=== PATIENT | female | born 1965 | race African-American/Black ===

== ENCOUNTER 2024-11-14 15:57 | Inpatient (IN) | payer OTHER, MEDICAID ==
[~2024-11-14] VITALS: Ht 160 cm; Wt 121.1 kg
[~2024-11-14 15:57] MED LIST: AMOX1TAB16 PO; ASPI-1497 PO; COR6 PO; FURO-152 PO; LOSA50TA41 PO; PROM6.2533 PO
[2024-11-14] MEDS ORDERED: IPRATROPIUM BROMIDE (0.02%) 0.5MG/2.5ML NEB HHN STA (16:12)
[2024-11-14] MEDS ORDERED: METHYLPREDNISOLONE SOD SUCC 125MG/2ML (ACT-O-VIAL) IV STA (16:12)
[2024-11-14] MEDS ORDERED: ASPIRIN 81MG TABLET PO ONE (16:15)
[2024-11-14] MEDS ORDERED: IPRATROPIUM BROMIDE (0.02%) 0.5MG/2.5ML NEB HHN NR (16:30)
[2024-11-14] MEDS ORDERED: ALBUTEROL (0.083%) 2.5MG/3ML NEB HHN SCH (16:30)
[2024-11-14] MEDS: ALBUTEROL (0.083%) 2.5MG/3ML NEB HHN SCH (16:30)
[2024-11-14 17:07] LABS: BASOPHILS % 0.6 % (0.0-2.0); EOSINOPHILS % 0.7 % (0.0-5.0); HEMATOCRIT. 46.8 % (36.0-48.0); HEMOGLOBIN. 15.7 g/dL (12.0-16.0); LYMPHOCYTES % 5.1 % (20.0-50.0); MEAN CORPUSCULAR HEMOGLOBIN 33.4 pg (28.0-32.0); MEAN CORPUSCULAR HGB CONC 33.5 g/dL (31.0-37.0); MEAN CORPUSCULAR VOLUME 99.6 fL (81.0-99.0); MEAN PLATELET VOLUME 10.1 fl (7.4-10.4); MONOCYTES % 7.6 % (2.0-8.0); PLATELET 166 x1000/uL (130-400); RED BLOOD CELL COUNT 4.69 mill/uL (4.2-5.4); RED CELL DISTRIBUTION WIDTH 14.4 % (11.6-14.6); WHITE BLOOD COUNT 5.9 x1000/uL (4.5-11.0)
[2024-11-14 17:09] LABS: CHLORIDE 110 mEq/L (98-107); POTASSIUM 4.1 mEq/L (3.5-5.1); SODIUM 144 mEq/L (136-145)
[2024-11-14 17:10] LABS: CARBON DIOXIDE 29 mEq/L (21-32)
[2024-11-14 17:11] LABS: CALCIUM 9.4 mg/dL (8.7-10.4)
[2024-11-14 17:12] LABS: INR 0.9; PARTIAL THROMBOPLASTIN TIME 30.2 sec (23.4-31.0); PROTHROMBIN TIME 10.4 sec (9.6-11.0)
[2024-11-14 17:15] LABS: CREATININE 0.7 mg/dL (0.6-1.0); GLUCOSE 123 mg/dL (70-105)
[2024-11-14 17:16] LABS: DIFFERENTIAL COMMENT 1; TROPONIN I HIGH SENSITIVITY 9 ng/L (3.0-34); UREA NITROGEN BLOOD 11 mg/dL (9-23)
[2024-11-14] MEDS: ASPIRIN 81MG TABLET PO NR (18:26)
[2024-11-14] MEDS: NITROGLYCERIN 0.4MG TABLET SL SL PRN (18:26)
[2024-11-14] MEDS: METHYLPREDNISOLONE SOD SUCC 125MG/2ML (ACT-O-VIAL) IV NR (18:26)
[2024-11-14] MEDS ORDERED: ONDANSETRON HCL 4MG/2ML INJ IV PRN (20:30)
[2024-11-14] MEDS ORDERED: NALOXONE HCL 0.4MG/ML VIAL IV PRN (20:30)
[2024-11-14 21:00] VITALS: BP 106/59; PULSE 74; RESP 20; TEMP 36.16956
[2024-11-14 23:54] LABS: CREATINE KINASE MB FRACTION 3.3 ng/mL (0.5-3.6)
[2024-11-15] VITALS (8 sets, daily range): BP systolic 112–140; BP diastolic 55–81; PULSE 78–97; RESP 19–24; TEMP 36.28068–36.83628; O2SAT 93–97
[2024-11-15] MEDS: IPRATROPIUM/ALBUTEROL 0.5-3(2.5)MG/3ML NEB HHN PRN (00:04)
[2024-11-15] MEDS: AZITHROMYCIN 500MG/250ML 250 ML IV SCH (00:25)
[2024-11-15 06:22] LABS: CARBON DIOXIDE 28 mEq/L (21-32); CHLORIDE 109 mEq/L (98-107); POTASSIUM 4.4 mEq/L (3.5-5.1); SODIUM 144 mEq/L (136-145)
[2024-11-15 06:23] LABS: CALCIUM 9.7 mg/dL (8.7-10.4)
[2024-11-15 06:24] LABS: CREATINE KINASE MB FRACTION 2.9 ng/mL (0.5-3.6)
[2024-11-15 06:28] LABS: CREATININE 0.7 mg/dL (0.6-1.0); GLUCOSE 123 mg/dL (70-105); LDL CHOLESTEROL 128 mg/dL (5-100); TRIGLYCERIDE 103 mg/dL (0-150); UREA NITROGEN BLOOD 11 mg/dL (9-23)
[2024-11-15 06:30] LABS: CHOLESTEROL 195 mg/dL (<200); HDL CHOLESTEROL 52 mg/dL (>65)
[2024-11-15 07:01] LABS: HEMATOCRIT. 45.2 % (36.0-48.0); HEMOGLOBIN. 15.4 g/dL (12.0-16.0); MEAN CORPUSCULAR HEMOGLOBIN 34.3 pg (28.0-32.0); MEAN PLATELET VOLUME 10.3 fl (7.4-10.4); PLATELET 179 x1000/uL (130-400); RED BLOOD CELL COUNT 4.48 mill/uL (4.2-5.4); RED CELL DISTRIBUTION WIDTH 14.5 % (11.6-14.6); WHITE BLOOD COUNT 7.2 x1000/uL (4.5-11.0)
[2024-11-15] MEDS: HYDROCODONE/ACETAMINOPHEN 5/325MG TABLET PO PRN (07:18)
[2024-11-15 08:09] LABS: DIFFERENTIAL COMMENT 1
[2024-11-15] MEDS: ASPIRIN 81MG EC TABLET PO SCH (09:28)
[2024-11-15] MEDS: FUROSEMIDE 40MG/4ML VIAL IVP SCH (10:20)
[2024-11-15] MEDS: PREDNISONE 20MG TABLET PO SCH (13:17)
[2024-11-15 13:31] LABS: PLATELET ESTIMATE NORMAL
[2024-11-15] MEDS: IPRATROPIUM/ALBUTEROL 0.5-3(2.5)MG/3ML NEB HHN SCH (20:20)
[2024-11-15] MEDS: TRAZODONE HCL 50MG TABLET PO PRN (22:59)
[2024-11-15] MEDS: GUAIFENESIN 600MG ER TABLET PO SCH (22:59)
[2024-11-16] VITALS (9 sets, daily range): BP systolic 107–161; BP diastolic 45–73; PULSE 67–89; RESP 15–20; TEMP 36.16956–37.66968; O2SAT 92–99
[2024-11-16] MEDS: LOSARTAN 50 MG TABLET PO SCH (01:01)
[2024-11-16] MEDS: CARVEDILOL 6.25 MG TABLET PO SCH (01:01)
[2024-11-16] MEDS: BUDESONIDE 0.5MG/2ML NEB HHN SCH (01:10)
[2024-11-16 09:32] LABS: CHLORIDE 105 mEq/L (98-107); POTASSIUM 4.1 mEq/L (3.5-5.1); SODIUM 140 mEq/L (136-145)
[2024-11-16 09:33] LABS: CALCIUM 9.6 mg/dL (8.7-10.4); CARBON DIOXIDE 28 mEq/L (21-32)
[2024-11-16 09:38] LABS: CREATININE 0.7 mg/dL (0.6-1.0); GLUCOSE 113 mg/dL (70-105); UREA NITROGEN BLOOD 14 mg/dL (9-23)
[2024-11-16] MEDS ORDERED: METHYLPREDNISOLONE SOD SUCC 40MG/ML (ACT-O-VIAL) IV SCH (13:09)
[2024-11-17] VITALS (10 sets, daily range): BP systolic 100–131; BP diastolic 44–71; PULSE 61–96; RESP 16–24; TEMP 36.16956–36.50292; O2SAT 95–100
[2024-11-17 02:31] LABS: *AMPHETAMINES SCREEN URINE NEGATIVE (NEGATIVE); *BARBITURATES SCREEN URINE NEGATIVE (NEGATIVE); *BENZODIAZEPINES SCREEN URINE NEGATIVE (NEGATIVE); *COCAINE SCREEN URINE NEGATIVE (NEGATIVE)
[2024-11-17 02:32] LABS: CANNABINOID URINE SCREEN NEGATIVE (NEGATIVE); ECSTASY MDMA SCREEN URINE NEGATIVE (NEGATIVE); METHADONE URINE SCREEN NEGATIVE (NEGATIVE); OPIATES URINE SCREEN NEGATIVE (NEGATIVE); PHENCYCLIDINE URINE SCREEN NEGATIVE (NEGATIVE)
[2024-11-17] MEDS: ENOXAPARIN 30MG/0.3ML SYR SUBCUT SCH (20:29)
[2024-11-18] VITALS (8 sets, daily range): BP systolic 93–126; BP diastolic 52–65; PULSE 63–99; RESP 18–20; TEMP 36–36.8; O2SAT 96–100
[2024-11-18] MEDS: FLUCONAZOLE 100MG TABLET PO NR (12:00)
[2024-11-19] VITALS (9 sets, daily range): BP systolic 91–134; BP diastolic 55–77; PULSE 70–85; RESP 16–22; TEMP 36.2–37.1; O2SAT 70–100
[2024-11-19] MEDS ORDERED: LIP40 MT (17:14)
[2024-11-19] MEDS ORDERED: PRED5TAB48 MT (17:14)
[2024-11-19] MEDS ORDERED: ATORVASTATIN CALCIUM 40MG TABLET PO SCH (21:00)
== END 2024-11-19 19:11 | disposition home or self-care (01) | DRG 291 ==
LOC: ER 15:57 → 5WST 18:53 → UNDOADMIN 18:53 → EDBEDREQ 18:55 → EDBEDREQTM 18:55 → 5WST 22:16
PROVIDERS: ADMIT Internal Medicine; ATTEND Internal Medicine
DX: I11.0 Hypertensive heart disease with heart failure (principal); I50.23 Acute on chronic systolic (congestive) heart failure; J44.1 Chronic obstructive pulmonary disease with (acute) exacerbation; Z68.42 Body mass index [BMI] 45.0-49.9, adult; J06.9 Acute upper respiratory infection, unspecified; Z20.822 Contact with and (suspected) exposure to COVID-19; I42.9 Cardiomyopathy, unspecified; E66.01 Morbid (severe) obesity due to excess calories; Z87.891 Personal history of nicotine dependence; Z79.899 Other long term (current) drug therapy
CPT/HCPCS: 36415; 71045; 76830; 76856; 80048; 80061; 80305; 82550; 82553; 83880; 84484; 85025; 87420; 87426; 87804; 93005; 94070; 94640; 94664; 98960; 99291; A4606; J0456; J1650; J1940; J2919; J7512; J7626